=== PATIENT | female | born 1990 | race Caucasian/White ===

== ENCOUNTER → 2019-06-28 17:17 | Outpatient (BNVA) | payer MEDICAID, SELFPAY | PROVIDERS: Family Provider Obstetrics & Gynecology; Visit Provider Nurse Practitioner Family | DX: J03.90 Acute tonsillitis, unspecified (principal) | CPT/HCPCS: 87081; 87880 ==

== ENCOUNTER 2019-07-14 05:50 | Day surgery (SDC) | payer MEDICAID, SELFPAY ==
[2019-07-13 10:39] VITALS: BMI 31.4
[2019-07-14] VITALS (10 sets, daily range): BP systolic 108–152; BP diastolic 57–92; PULSE 58–85; RESP 16–20; TEMP 36.1–36.6; O2SAT 95–99
[2019-07-14] MEDS: sodium chloride 0.9% 1,000 ML 30 ML IV (06:22)
[2019-07-14] MEDS: scopolamine 1.5 Patch 1 PATCH TRANSDERMA (06:23)
--- NOTE | 2019-07-14 06:46 | PM.HPUD ---
H&P update H&P Update: DATE OF SURGERY/PROCEDURE: 07/14/19 DATE H&P PERFORMED: 07/03/19 H&P UPDATE INFORMATION: H&P completed within last 30 days and No changes to prior documentation PREOP DIAGNOSIS: Recurrent tonsillitis PLANNED PROCEDURE: Operation Date: 07/14/19 07:00 Proposed Procedures p Tonsillectomy(Bilateral) - Ramiro Benz MD Full H&P Medications/Allergies: Current Medications: Current Medications Generic Name Dose Route Start Last Admin Trade Name Freq PRN Reason Stop Dose Admin Sodium Chloride 1,000 mls @ 30 ml s/hr 07/13/19 08:00 07/14/19 06:22 Sodium Chloride 0.9% IV 07/14/19 07:59 30 mls/hr .Q24H CHRISTOPH Administration Perinent History: Social History: Social History Smoking and tobacco status: never smoked
--- NOTE | 2019-07-14 06:49 | ANES.PREANE2 ---
Pre-Anesthetic Assessment Pre-Anesthetic Assessment: Height/Weight: Height 1.73 m Weight 93.894 kg Temp Pulse Resp BP Pulse Ox 97.0 F L 66 18 128/69 99 07/14/19 06:03 07/14/19 06:03 07/14/19 06:03 07/14/19 06:03 07/14/19 06:03 Preop Diagnosis: Recurrent tonsillitis Proposed Procedure: Operation Date: 07/14/19 07:00 Proposed Procedures p Tonsillectomy(Bilateral) - Ramiro Benz MD Last intake: Intake Last Liquid Date 07/13/19 Last Liquid Time 22:30 Last Solid Date 07/13/19 Last Solid Time 22:30 Social: Packs per day: 1/2 Pack years: 5 Exam: Pre-Anes Outpt Exam: alert, oriented x 3, clear to auscultation bilaterally and regular rate & rhythm Airway: Submandibular: WNL Cervical ROM: WNL MP: 1 Pulmonary: Pulmonary: Asthma Comments: 8y Neuropsych: Neuropsych: Depression and PETERS Anesthetic Plan: ASA status: 2 Anesthesia: General Meds/Allergies Current Medications: Current Medications Generic Name Dose Route Start Last Admin Trade Name Freq PRN Reason Stop Dose Admin Sodium Chloride 1,000 mls @ 30 ml s/hr 07/13/19 08:00 07/14/19 06:22 Sodium Chloride 0.9% IV 07/14/19 07:59 30 mls/hr .Q24H CHRISTOPH Administration PFSH Anesthesia PFSH: Social History (Updated 06/28/19 @ 17:09 by Debbie Machado LPN) Smoking and tobacco status: never smoked Female Reproductive History: Date of last menstrual period: 07/04/18 Data Anesthesia Cardiac Studies: No Data to Display
[2019-07-14 07:14] LABS: Basophils % 0.3 %; Eosinophils # 0.3 10^3/uL (0.0-0.8); Eosinophils % 4.2 %; Hematocrit 36.8 % (37.0-47.0); Hemoglobin 11.7 g/dL (11.5-15.3); Lymphocytes # 2.4 10^3/uL (0.8-4.8); Mean Corpuscular HGB Conc 31.8 g/dL (30.0-36.0); Mean Corpuscular Hemoglobin 25.6 pg (28.0-34.0); Mean Corpuscular Volume 80.5 fL (81-99); Mean Platelet Volume 9.2 fL (7.4-10.4); Monocytes # 0.4 10^3/uL (0.2-0.9); Monocytes % 6.6 %; Neutrophils # 3.1 10^3/uL (1.8-7.7); Neutrophils % 49.6 %; Nucleated Red Blood Cells % 0 %; Platelet Count 212 10^3/cmm (130-400); Red Blood Count 4.57 10^6/uL (4.1-5.3); Red Cell Distribution Width 15.7 % (12.1-15.1); White Blood Count 6.2 10^3/uL (4.0-10.0)
--- NOTE | 2019-07-14 07:50 | PM.OP ---
Operative Report Date of procedure: July 14, 2019 Pre-op Diagnosis: Recurrent tonsillitis Post-op diagnosis: same Post-op Findings: 3+ tonsils bilaterally Procedure Done: Bilateral tonsillectomy Implants: None Pathology: Right and Left tonsils Surgeon: Ramiro Benz Behavioral Health Assistant: Elie Sung Anesthesia: General Estimated blood loss (mL): 20 IV fluids (mL): 700 Complications: None Findings: 3+ tonsils bilaterally Condition: stable Disposition: PACU Brief History: 29 yo wf with a h/o recurrent tonsillitis and recurrent peritonsillar abscess who desires surgical therapy. Procedure: DESCRIPTION OF THE OPERATION: The patient was identified in the preoperative holding area. Patient was taken to the Operating Room where she was placed on the operating table in the supine position. Anesthesia was obtained with general endotracheal anesthesia. The table was then turned 90 degrees to the patient's left. Patient was prepped and draped in the usual sterile fashion. A McIvor mouth gag was then placed atraumatically in the patient's oral cavity. Patient was suspended in the Cassie position. A systematic inspection was then carried out of the patient's oral cavity, oropharynx and nasopharynx with findings previously noted. Patient's right tonsil was grasped at its midpole with an Allis clamp, which was used to retract the right tonsil towards the midline using electrocautery. A mucosal incision was made at the anterior edge of the right tonsil. Blunt dissection was used to identify the right tonsillar capsule. The right tonsil was then excised from its fossa in a superior inferior fashion. Using electrocautery, hemostasis was achieved with bipolar cautery. Attention was then turned to the left tonsil, where a similar procedure was performed. Once this was accomplished, the patient's oral cavity was irrigated with copious amounts of normal saline. The wounds were inspected for hemostasis, which were found to be adequate. The patient was then taken off suspension. The mouth gag was atraumatically released and removed. The procedure was then terminated and control of the patient was returned to Anesthesia, where she underwent an uneventful reversal of anesthesia and extubation. She was then taken to the Recovery Room in stable condition. There were no operative or anesthetic complications. []
[2019-07-14] MEDS: fentaNYL 50 mcg/mL INJ 2mL IVP ×2 (07:54→08:00)
--- NOTE | 2019-07-14 08:30 | SUR.PHASEI ---
0815 pt still shivering off and on , pt requests to get up to BR, pt alert talkative taking ice chips pt to ops per bed and assisted up to BSC, PACU NURSE WITH PT PT TOLERATED WELL, DRINKING SPRITE WITH NO DIFFICULTY, VSS ON RA SATS 100%
[2019-07-15 16:00] LABS: OR HCG Qualitative Urine Negative (Negative)
== END 2019-07-14 10:10 | disposition home or self-care (01) ==
PROVIDERS: Anesthesiology; Family Provider Obstetrics & Gynecology; Visit Provider Specialist
PROC: (CPT 42826; principal; 2019-07-14 07:00)
DX: J03.91 Acute recurrent tonsillitis, unspecified (principal)
CPT/HCPCS: 42826; 12345; 36415; 81025; 84703; 85025; 88304; J0131; J1100; J2001; J2405; J2704; J2710; J2765; J3010; J3490; J7030

== ENCOUNTER → 2019-07-15 11:31 | Outpatient (BNVA) | payer MEDICAID, SELFPAY | PROVIDERS: Family Provider Obstetrics & Gynecology; Visit Provider Nurse Practitioner | DX: F34.1 Dysthymic disorder (principal); F43.12 Post-traumatic stress disorder, chronic | CPT/HCPCS: 99213 ==

== ENCOUNTER 2019-12-09 06:30 | Emergency (ER) | payer MEDICAID, SELFPAY ==
[2019-12-09 06:35] VITALS: BP 97/67; PULSE 96; RESP 18; TEMP 36.9; O2SAT 99; BMI 27.9
--- NOTE | 2019-12-09 06:46 | W.ED.ABDPA2 ---
HPI - Abdominal Pain General: Chief Complaint: Abdominal Pain Stated Complaint: LOW BACK PAIN Time Seen by Provider: 12/09/19 06:34 History of Present Illness: HPI narrative: 29-year-old female complaining of suprapubic pain right flank pain dysuria urgency and frequency been going on for about the last week or so she has not really taken anything for it. She complaining of chills and sweats at times she had dysuria urgency and frequency but denies any hematuria. She is previously had a tubal ligation is not concerned that she is . MD elicited complaint: flank pain Pertinent past history: past UTI Onset (ago): week(s) (1) Pain Consistency: intermittent Location: R flank and Suprapubic Severity: moderate Quality: cramping Radiation: other (Low back bilaterally) Exacerbating factors: other (Urination) Relieving factors: nothing Associated Symptoms: Reports anorexia, dysuria and fever(s); Denies hematuria and nausea Related Data: Date of Last Menstrual Period: 11/20/19 Review of Systems Const: Reports: fever(s) ENMT: Denies: throat pain, ear or mastoid pain, nasal discharge or nasal congestion Card: Denies: chest pain, edema, dyspnea on exertion or orthopnea Resp: Denies: dyspnea, productive cough or non-productive cough GI: Denies: nausea : Reports: dysuria; Denies: hematuria Skin/Breast: Denies: rash or pruritus PFSH ED PFSH: Medical History Dysthymic disorder Post-traumatic stress disorder, chronic Tubal ligation evaluation Surgical History S/P cholecystectomy Social History Smoking and tobacco status: current every day smoker cigarettes Smoking risk assessment/counseling performed?: Yes Tobacco counseling given: counseling >3 minutes Female Reproductive History: Date of last menstrual period: 11/20/19 Physical Exam Const: COMMON NORMALS: no acute distress GENERAL APPEARANCE: cooperative and comfortable ORIENTATION/CONSCIOUSNESS: Yes awake, Yes oriented to person, Yes oriented to place and Yes oriented to time HENMT: COMMON NORMALS: normocephalic, atraumatic, hearing grossly normal bilaterally, external ears normal, EAC's normal, TM's normal bilaterally, Normal nasal mucous membranes and turbinates present, moist oral mucous membranes and oropharynx normal HEAD & SCALP: normocephalic and atraumatic NOSE: Normal nasal mucous membranes and turbinates present EXTERNAL EAR: Yes external ears normal EXTERNAL AUDITORY CANAL: EAC's normal TYMPANIC MEMBRANE: TM's normal bilaterally Eye: COMMON NORMALS: Equal, round and reactive pupils present, EOMs intact bilaterally, conjunctivae normal and no scleral icterus CONJUNCTIVA: Yes conjunctivae normal PUPIL: Yes Equal, round and reactive pupils present Neck/C-Spine: COMMON NORMALS: full ROM, no lymphadenopathy, supple and no JVD Lymph: LYMPHATIC: no lymphadenopathy noted and no lymphedema noted Resp: COMMON NORMALS: normal respiratory effort, No retractions, No use of accessory muscles and clear to auscultation bilaterally AUSCULTATION: clear to auscultation bilaterally Cardio: COMMON NORMALS: no JVD, regular rate, regular rhythm and No murmurs present (Cardio) RATE: regular rate RHYTHM: regular rhythm GI: COMMON NORMALS: Soft to palpation and No hepatosplenomegaly present AUSCULTATION: Yes normoactive bowel sounds PALPATION: Yes Soft to palpation, No Tenderness to palpation present (GI), No Guarding due to palpation present (GI) and Yes No hepatosplenomegaly present : BLADDER/KIDNEY EXAM: Yes CVA tenderness Back/Pelvis: GENERAL BACK: Yes CVA tenderness CVA tenderness: right LUMBAR SPINE/LOWER BACK: Yes paraspinal muscle tenderness Extremity: COMMON NORMALS: normal to inspection, capillary refill normal, no clubbing, cyanosis or edema, no calf tenderness and no pedal edema Neuro: SENSORIUM/ORIENTATION: Yes oriented to person, Yes oriented to place and Yes oriented to time Skin: COMMON NORMALS: no rashes or lesions noted GENERAL SKIN EXAM: no rashes or lesions noted Course Vital Signs: Vital signs: Vital Signs Temperature 98.4 F 12/09/19 06:35 Pulse Rate 82 12/09/19 10:11 Respiratory Rate 18 12/09/19 10:11 Blood Pressure 104/54 12/09/19 10:11 Pulse Oximetry 99 12/09/19 10:11 MDM - Abdominal Pain MDM Narrative: Medical decision making narrative: Labs reviewed with the patient no evidence of stone patient does have a cystitis. Patient given IV Rocephin here. We will discharge home on Pyridium and a prescription for ciprofloxacin for 7 days. Because of an error in the EMR system to ciprofloxacin does not show up in the discharge plan below. However it was written and is noted on the discharge instructions that are scanned back into the chart after they had been signed by the patient. Please see that portion of the chart for verification of the antibiotic prescription. Patient is to follow-up with her primary care doctor if she has any further problems. Lab Data: Labs: Lab Results 12/09/19 12/09/19 12/09/19 Range/Units 07:14 07:16 07:18 WBC 8.6 (4.0-10.0) 10^3/ uL RBC 4.43 (4.1-5.3) 10^6/u L Hgb 12.0 (11.5-15.3) g/dL Hct 37.5 (37.0-47.0) % MCV 84.7 (81-99) fL MCH 27.1 L (28.0-34.0) pg MCHC 32.0 (30.0-36.0) g/dL RDW 14.1 (12.1-15.1) % Plt Count 193 (130-400) 10^3/c mm MPV 9.3 (7.4-10.4) fL Neut % (Auto) 70.0 % Lymph % (Auto) 18.9 % Becker % (Auto) 10.3 % Eos % (Auto) 0.3 % Baso % (Auto) 0.2 % Neut # (Auto) 6.0 (1.8-7.7) 10^3/u L Lymph # (Auto) 1.6 (0.8-4.8) 10^3/u L Becker # (Auto) 0.9 (0.2-0.9) 10^3/u L Eos # (Auto) 0.0 (0.0-0.8) 10^3/u L Baso # (Auto) 0.0 (0.0-0.1) 10^3/u L Nucleated RBC % (a uto) 0 % Nucleated RBCs # 0.0 /100WBC Sodium (136-145) mmol/L Potassium (3.5-5.1) mmol/L Chloride (98-107) mmol/L Carbon Dioxide (22-29) mmol/L Anion Gap (5-19) BUN (6-20) mg/dL Creatinine (0.5-0.9) mg/dL GFR Calculation (90-130) mL/min Glucose (65-115) mg/dL Calculated Osmolal ity (285-295) mOsm/k g Calcium (8.5-10.5) mg/dL Total Bilirubin (0.15-1.2) mg/dL AST (0-32) U/L ALT (0-33) U/L Alkaline Phosphata se (35-105) IU/L Total Protein (6.6-8.7) g/dL Albumin (3.5-5.2) g/dL Globulin (1.3-4.6) g/dL Lipase (13-60) U/L HCG, Qual Negative (Negative) Urine Color Yellow (Yellow) Urine Appearance Hazy A (CLEAR) Urine pH 5 (5-7) Ur Specific Gravit y 1.005 (1.005-1.030) Urine Protein Trace (Negative) Urine Glucose (UA) Norm (Normal) Urine Ketones Negative (Negative) Urine Blood 2+ H (Negative) Urine Nitrate Negative (Negative) Urine Bilirubin 1+ H (NEGATIVE) Urine Urobilinogen 1 H (Negative) mg/dL Ur Leukocyte Ofelia ase 2+ H (Negative) Urine RBC 0-4 H (0-2) /hpf Urine WBC 80-100 H (0-5) /hpf Ur Squamous Epith Cells 5-10 H (0-5) Amorphous Sediment Not Reportable Urine Bacteria 2+ H (NONE) Urine Mucus 1+ 12/09/19 Range/Units 07:18 WBC (4.0-10.0) 10^3/ uL RBC (4.1-5.3) 10^6/u L Hgb (11.5-15.3) g/dL Hct (37.0-47.0) % MCV (81-99) fL MCH (28.0-34.0) pg MCHC (30.0-36.0) g/dL RDW (12.1-15.1) % Plt Count (130-400) 10^3/c mm MPV (7.4-10.4) fL Neut % (Auto) % Lymph % (Auto) % Becker % (Auto) % Eos % (Auto) % Baso % (Auto) % Neut # (Auto) (1.8-7.7) 10^3/u L Lymph # (Auto) (0.8-4.8) 10^3/u L Becker # (Auto) (0.2-0.9) 10^3/u L Eos # (Auto) (0.0-0.8) 10^3/u L Baso # (Auto) (0.0-0.1) 10^3/u L Nucleated RBC % (a uto) % Nucleated RBCs # /100WBC Sodium 136 (136-145) mmol/L Potassium 4.1 (3.5-5.1) mmol/L Chloride 101 (98-107) mmol/L Carbon Dioxide 22 (22-29) mmol/L Anion Gap 17.1 (5-19) BUN 10 (6-20) mg/dL Creatinine 0.7 (0.5-0.9) mg/dL GFR Calculation 100.4 (90-130) mL/min Glucose 105 (65-115) mg/dL Calculated Osmolal ity 278 L (285-295) mOsm/k g Calcium 9.0 (8.5-10.5) mg/dL Total Bilirubin 0.6 (0.15-1.2) mg/dL AST 37 H (0-32) U/L ALT 50 H (0-33) U/L Alkaline Phosphata se 116 H (35-105) IU/L Total Protein 7.2 (6.6-8.7) g/dL Albumin 3.9 (3.5-5.2) g/dL Globulin 3.3 (1.3-4.6) g/dL Lipase 11 L (13-60) U/L HCG, Qual (Negative) Urine Color (Yellow) Urine Appearance (CLEAR) Urine pH (5-7) Ur Specific Gravit y (1.005-1.030) Urine Protein (Negative) Urine Glucose (UA) (Normal) Urine Ketones (Negative) Urine Blood (Negative) Urine Nitrate (Negative) Urine Bilirubin (NEGATIVE) Urine Urobilinogen (Negative) mg/dL Ur Leukocyte Ofelia ase (Negative) Urine RBC (0-2) /hpf Urine WBC (0-5) /hpf Ur Squamous Epith Cells (0-5) Amorphous Sediment Urine Bacteria (NONE) Urine Mucus Discharge Plan Discharge Patient Disposition: Home, Self-Care Clinical Impression: Cystitis Condition: Stable Prescriptions: New Pyridium 200 mg tablet 200 mg PO Q8H PRN (Reason: pain) Qty: 6 RF: 0 No Action albuterol sulfate [ProAir HFA] 90 mcg/actuation HFA aerosol inhaler 2 puff INHALATION Q4H PRN (Reason: Shortness Of Breath) RF: 0 Tylenol Extra Strength 500 mg Tablet 1,000 mg PO PRN RF: 0 ibuprofen 200 mg Tablet 800 mg PO PRN RF: 0 Excedrin Migraine 250-250-65 mg Tablet 2 tab PO PRN RF: 0 Discharge Orders: Discharge Order (Routine); Ordered 12/09/19 Ordered By: Jose Francisco Rioz Referrals: Ketan Yao MD [Family Provider] - Activity Restrictions/Additional Instructions: Follow-up with your primary care doctor as needed. Return to the emergency room if you have worsening symptoms Discharge Date/Time: 12/09/19 10:12 Coding Level of Care Code ED Geodetic Survey Director for Chg Fwd Exam Comprehensive
[2019-12-09 07:25] VITALS: RESP 18
[2019-12-09 07:25] LABS: Basophils % 0.2 %; Eosinophils % 0.3 %; Hematocrit 37.5 % (37.0-47.0); Lymphocytes # 1.6 10^3/uL (0.8-4.8); Lymphocytes % 18.9 %; Mean Corpuscular Hemoglobin 27.1 pg (28.0-34.0); Mean Corpuscular Volume 84.7 fL (81-99); Mean Platelet Volume 9.3 fL (7.4-10.4); Monocytes # 0.9 10^3/uL (0.2-0.9); Monocytes % 10.3 %; Nucleated Red Blood Cells % 0 %; Platelet Count 193 10^3/cmm (130-400); Red Blood Count 4.43 10^6/uL (4.1-5.3); Red Cell Distribution Width 14.1 % (12.1-15.1); White Blood Count 8.6 10^3/uL (4.0-10.0)
[2019-12-09] MEDS: morphine 4 mg/mL SDV 1 mL 2 MG IVP (07:25)
[2019-12-09] MEDS: ondansetron 2 mg/ML SDV 2 mL 4 MG IVP (07:27)
[2019-12-09] MEDS: sodium chloride 0.9% 1,000 ML 999 ML IV (07:28)
[2019-12-09 07:29] LABS: HCG Qualitative Urine. Negative (Negative)
[2019-12-09 07:42] LABS: Alanine Aminotransferase 50 U/L (0-33); Albumin Level 3.9 g/dL (3.5-5.2); Alkaline Phosphatase 116 IU/L (35-105); Anion Gap 17.1 (5-19); Blood Urea Nitrogen 10 mg/dL (6-20); Carbon Dioxide 22 mmol/L (22-29); Chloride 101 mmol/L (98-107); Globulin 3.3 g/dL (1.3-4.6); Glomerular Filtration Rate 100.4 mL/min (90-130); Glucose 105 mg/dL (65-115); Lipase 11 U/L (13-60); Osmolality Calculated 278 mOsm/kg (285-295); Potassium 4.1 mmol/L (3.5-5.1); Sodium 136 mmol/L (136-145); Total Bilirubin 0.6 mg/dL (0.15-1.2); Total Protein 7.2 g/dL (6.6-8.7)
[2019-12-09 08:02] LABS: Aspartate Amino Transferase 37 U/L (0-32)
[2019-12-09 09:03] LABS: Glucose Urine UA Norm (Normal); Ketones Urine Negative (Negative); Protein Urine Trace (Negative); Specific Gravity, Urine 1.005 (1.005-1.030); Urine Appearance Hazy (CLEAR); Urine Color Yellow (Yellow); pH Urine 5 (5-7)
[2019-12-09 09:04] LABS: Add Urine Microscopic? YES; Bilirubin Urine 1+ (NEGATIVE); Blood Urine 2+ (Negative); Leukocyte Esterase Urine 2+ (Negative); Nitrate Urine Negative (Negative); Urobilinogen Urine 1 mg/dL (Negative)
[2019-12-09 09:09] LABS: RBC Urine 0-4 /hpf (0-2); WBC Urine 80-100 /hpf (0-5)
[2019-12-09 09:10] LABS: Add Urine Culture? Yes; Bacteria Urine 2+; Mucus Urine 1+
[2019-12-09] MEDS: cefTRIAXone 1,000 MG in sodium chloride 0.9% (plus) 50 ML 100 MG IV (09:21)
[2019-12-09 10:11] VITALS: BP 104/54; PULSE 82; RESP 18; O2SAT 99
== END 2019-12-09 10:12 | disposition home or self-care (01) ==
PROVIDERS: Emergency Provider Family Medicine; Family Provider Obstetrics & Gynecology
DX: N30.90 Cystitis, unspecified without hematuria (principal); F17.210 Nicotine dependence, cigarettes, uncomplicated
CPT/HCPCS: 12345; 80053; 81001; 81003; 81025; 83690; 85025; 87077; 87086; 87186; 96365; 96375; 99282; 99283; J0696; J2270; J2405; J7030

== ENCOUNTER → 2021-01-31 15:45 | Outpatient (BNVA) | payer BC, MEDICAID, SELFPAY | PROVIDERS: Family Provider Obstetrics & Gynecology; Visit Provider Obstetrics & Gynecology | DX: N92.0 Excessive and frequent menstruation with regular cycle (principal) | CPT/HCPCS: 83001; 84146; 84443; 84703; 85025 ==

== ENCOUNTER → 2021-02-21 10:54 | Outpatient (BNVA) | payer BC, MEDICAID, SELFPAY | PROVIDERS: Family Provider Obstetrics & Gynecology; Visit Provider Obstetrics & Gynecology | DX: N85.2 Hypertrophy of uterus (principal) | CPT/HCPCS: 76830 ==

== ENCOUNTER → 2021-08-23 11:55 | Outpatient (BNVA) | payer BC, MEDICAID, SELFPAY | PROVIDERS: Family Provider Obstetrics & Gynecology; Visit Provider Nurse Practitioner | DX: F43.12 Post-traumatic stress disorder, chronic (principal); F17.210 Nicotine dependence, cigarettes, uncomplicated | CPT/HCPCS: 90792 ==